=== PATIENT | female | born 1970 | race Two or more races ===

== ENCOUNTER 2023-05-19 19:36 | Inpatient (IN) | payer BC ==
[~2023-05-19] VITALS: Ht 162.6 cm; Wt 107.5 kg
[2023-05-19 20:32] VITALS: BP_SYST 176; PULSE 107; RESP 19; TEMP 97.6; O2SAT 94
[2023-05-19 23:16] LABS: COVID19 ANTIGEN SOFIA FIA NEGATIVE (NEGATIVE)
[2023-05-19 23:58] LABS: INFLUENZA TYPE A negative (NEGATIVE); INFLUENZA TYPE B NEGATIVE (NEGATIVE)
[2023-05-20] VITALS (7 sets, daily range): BP systolic 121–155; PULSE 78–94; RESP 16–18; TEMP 97.3–99.1; O2SAT 93–96
[2023-05-20 00:36] LABS: BASOPHILS # (AUTO) 0.2 K/uL (0.0-0.2); BASOPHILS % (AUTO) 1.5 % (0.0-2.0); EOSINOPHILS # (AUTO) 0.1 K/uL (0.0-0.4); HEMATOCRIT 38.9 % (36-48); HEMOGLOBIN 12.5 g/dL (12.0-16.0); LYMPHOCYTES % (AUTO) 33.4 % (20.5-51.5); MEAN CORPUSCULAR HEMOGLOBIN 29 pg (27-31); MEAN CORPUSCULAR HGB CONC 32 % (32-36); MEAN CORPUSCULAR VOLUME 90 fL (79.0-98.0); MONOCYTES # (AUTO) 0.5 K/uL (0.0-1.0); MONOCYTES % (AUTO) 4.2 % (1.7-9.3); NEUTROPHILS # (AUTO) 7.1 K/uL (1.8-7.7); NEUTROPHILS % (AUTO) 59.9 % (40.0-70.0); PLATELET COUNT (AUTO) 345 K/uL (130-430); RED BLOOD CELL COUNT(AUTO) 4.32 MIL/uL (4.2-6.2); RED CELL DISTRIBUTION WIDTH 15.4 % (9.0-15.0); WHITE BLOOD COUNT (AUTO) 11.9 K/uL (4.8-10.8)
[2023-05-20 00:58] LABS: ANION GAP 11 (5-15); CARBON DIOXIDE 25 mmol/L (23-29); CHLORIDE 105 mmol/L (98-107); CREATININE 0.69 mg/dL (0.55-1.30); GFR AFRICAN AMERICAN 114 mL/min (>90); GLUCOSE 124 mg/dL (74-106); POTASSIUM 3.6 mmol/L (3.5-5.1); SODIUM SERUM 141 mmol/L (136-145); UREA NITROGEN, BLOOD 12 mg/dL (8-21)
[2023-05-20] MEDS ORDERED: NACL 0.9% 1,000 ML IV ONE (01:15)
[2023-05-20 01:19] LABS: ALANINE AMINOTRANSFERASE 72 U/L (12-78); ALBUMIN 2.8 g/dL (3.4-4.8); ASPARTATE AMINOTRANSFERASE 35 U/L (10-37); TOTAL BILIRUBIN 0.5 mg/dL (0.0-1.0); TOTAL PROTEIN, SERUM 6.8 g/dL (6.4-8.3)
[2023-05-20 01:25] LABS: GFR NON AFRICAN-AMERICAN 95 mL/min (>90)
[2023-05-20] MEDS ORDERED: iohexoL 350 mgI/mL, 100 ML INFUS..BTL IV ONE (01:38)
[2023-05-20] MEDS ORDERED: ENOXAPARIN SODIUM 100 MG/ML SYRINGE SUBCUT ONE (01:45)
[2023-05-20] MEDS ORDERED: ASPIRIN 325 MG TABLET PO ONE (01:45)
[2023-05-20] MEDS ORDERED: FUROSEMIDE 40 MG/4 ML VIAL IVP ONE (05:30)
[2023-05-20] MEDS: NACL 0.9% 1,000 ML IV SCH (07:40)
[2023-05-20] MEDS ORDERED: ONDANSETRON HCL 4 MG/2 ML VIAL IVP PRN (08:15)
[2023-05-20] MEDS ORDERED: MUPIROCIN 2% TOPICAL OINTMENT 22 GM NS PRN (08:15)
[2023-05-20] MEDS ORDERED: DOCUSATE SODIUM 100 MG CAPSULE PO PRN (08:15)
[2023-05-20] MEDS ORDERED: POTASSIUM CHLORIDE 20 MEQ TAB.PRT.SR PO PRN (08:15)
[2023-05-20] MEDS ORDERED: MORPHINE 2 MG/ML INJ. SYRINGE IVP PRN ×2 (08:15)
[2023-05-20] MEDS ORDERED: ZOLPIDEM TARTRATE 5 MG TABLET PO PRN (08:15)
[2023-05-20] MEDS ORDERED: ACETAMINOPHEN 325 MG TABLET PO PRN ×2 (08:15→09:45)
[2023-05-20] MEDS ORDERED: NALOXONE HCL 0.4 MG/ML AMP (NARCAN) IVP PRN ×2 (08:15)
[2023-05-20] MEDS ORDERED: MAGNESIUM SULFATE 50 ML IV PRN (08:15)
[2023-05-20] MEDS ORDERED: LORazepam 2 MG/ML VIAL IVP PRN (08:15)
[2023-05-20] MEDS ORDERED: PIPERACILLIN/TAZO 3.375/DEX-IS 50 ML IV SCH (08:15)
[2023-05-20] MEDS ORDERED: FUROSEMIDE 20 MG/2 ML VIAL IVP SCH (09:00)
[2023-05-20] MEDS: ENOXAPARIN SODIUM 40 MG/0.4 ML SYRINGE SUBCUT SCH (09:44)
[2023-05-20] MEDS: METOPROLOL TARTRATE 25 MG TABLET PO SCH ×2 (09:44→21:58)
[2023-05-20 11:36] LABS: THYROID STIMULATING HORMONE 3.48 uIu/mL (0.34-4.82)
[2023-05-20] MEDS: PIPERACILLIN/TAZO 3.375/DEX-IS 50 ML IV SCH ×2 (17:06→23:23)
[2023-05-21 00:02] VITALS: BP_SYST 135; PULSE 71; RESP 18; TEMP 98.2; O2SAT 94
[2023-05-21] MEDS: NACL 0.9% 1,000 ML IV SCH ×2 (05:01→17:16)
[2023-05-21] MEDS: PIPERACILLIN/TAZO 3.375/DEX-IS 50 ML IV SCH ×3 (05:01→17:18)
[2023-05-21 05:21] LABS: METHAMPHETAMINES SCREEN,URINE POSITIVE (NEG <=500)
[2023-05-21 05:22] LABS: BARBITURATE, URINE NEGATIVE (NEG <=200); BENZODIAZEPINE, URINE NEGATIVE (NEG <=150); CANNABINOID, URINE NEGATIVE (NEG <=50); COCAINE, URINE NEGATIVE (NEG <=150); OPIATE, URINE NEGATIVE (NEG <=100); PHENCYCLIDINE SCREEN,URINE NEGATIVE (NEG <=25); UR TRICYCLIC ANTIDEPRESSANTS NEGATIVE (NEG <=300); URINE AMPHETAMINE POSITIVE (NEG <=500); URINE METHADONE NEGATIVE (NEG <=200); URINE OXYCODONE SCREEN NEGATIVE (NEG <=100); URINE PROPOXYPHENE SCREEN NEGATIVE (NEG <=300)
[2023-05-21 05:54] LABS: BASOPHILS # (AUTO) 0.1 K/uL (0.0-0.2); BASOPHILS % (AUTO) 0.6 % (0.0-2.0); EOSINOPHILS # (AUTO) 0.1 K/uL (0.0-0.4); EOSINOPHILS % (AUTO) 1.5 % (0.0-4.0); HEMOGLOBIN 11.8 g/dL (12.0-16.0); LYMPHOCYTES # (AUTO) 2.7 K/uL (1.0-5.5); LYMPHOCYTES % (AUTO) 28.3 % (20.5-51.5); MEAN CORPUSCULAR HEMOGLOBIN 30 pg (27-31); MEAN CORPUSCULAR HGB CONC 33 % (32-36); MEAN CORPUSCULAR VOLUME 90 fL (79.0-98.0); MONOCYTES # (AUTO) 0.5 K/uL (0.0-1.0); MONOCYTES % (AUTO) 5.4 % (1.7-9.3); NEUTROPHILS # (AUTO) 6.2 K/uL (1.8-7.7); NEUTROPHILS % (AUTO) 64.2 % (40.0-70.0); PLATELET COUNT (AUTO) 333 K/uL (130-430); RED BLOOD CELL COUNT(AUTO) 3.99 MIL/uL (4.2-6.2); RED CELL DISTRIBUTION WIDTH 15.5 % (9.0-15.0); WHITE BLOOD COUNT (AUTO) 9.7 K/uL (4.8-10.8)
[2023-05-21 06:05] LABS: CALCIUM 7.8 mg/dL (8.4-11.0); CREATININE 0.78 mg/dL (0.55-1.30); POTASSIUM 3.4 mmol/L (3.5-5.1)
[2023-05-21 08:00] VITALS: BP_SYST 137; PULSE 84; RESP 20; TEMP 97.6; O2SAT 96; O2SAT 98
[2023-05-21] MEDS ORDERED: ASPIRIN 81 MG TABLET(ECOTRIN) PO ONE (09:15)
[2023-05-21] MEDS ORDERED: FUROSEMIDE 20 MG/2 ML VIAL IVP ONE (09:15)
[2023-05-21] MEDS: METOPROLOL TARTRATE 25 MG TABLET PO SCH ×2 (09:20→21:02)
[2023-05-21] MEDS: ENOXAPARIN SODIUM 40 MG/0.4 ML SYRINGE SUBCUT SCH (09:21)
[2023-05-21 12:00] VITALS: BP_SYST 129; PULSE 83; RESP 20; TEMP 97.5; O2SAT 97
[2023-05-21] MEDS: IPRATROPIUM/ALBUTEROL SULFATE 3 ML AMPUL.NEB (DUONEB) INH PRN ×2 (13:31→21:58)
[2023-05-21 16:00] VITALS: BP_SYST 130; PULSE 80; RESP 20; TEMP 97.4; O2SAT 97
[2023-05-21 20:00] VITALS: BP_SYST 131; PULSE 82; RESP 20; TEMP 98.1; O2SAT 99
[2023-05-21 22:04] VITALS: O2SAT 97
[2023-05-22] VITALS (12 sets, daily range): BP systolic 128–145; PULSE 78–95; RESP 18–21; TEMP 97.8–98.8; O2SAT 2–99
[2023-05-22] MEDS: PIPERACILLIN/TAZO 3.375/DEX-IS 50 ML IV SCH ×5 (00:55→18:46)
[2023-05-22] MEDS: NACL 0.9% 1,000 ML IV SCH (00:56)
[2023-05-22 06:06] LABS: BASOPHILS % (AUTO) 0.4 % (0.0-2.0); EOSINOPHILS # (AUTO) 0.1 K/uL (0.0-0.4); EOSINOPHILS % (AUTO) 1.3 % (0.0-4.0); HEMATOCRIT 34.9 % (36-48); HEMOGLOBIN 11.4 g/dL (12.0-16.0); LYMPHOCYTES # (AUTO) 2.3 K/uL (1.0-5.5); LYMPHOCYTES % (AUTO) 27.7 % (20.5-51.5); MEAN CORPUSCULAR HEMOGLOBIN 30 pg (27-31); MEAN CORPUSCULAR HGB CONC 33 % (32-36); MEAN CORPUSCULAR VOLUME 90 fL (79.0-98.0); MONOCYTES # (AUTO) 0.5 K/uL (0.0-1.0); MONOCYTES % (AUTO) 5.8 % (1.7-9.3); NEUTROPHILS # (AUTO) 5.4 K/uL (1.8-7.7); NEUTROPHILS % (AUTO) 64.8 % (40.0-70.0); PLATELET COUNT (AUTO) 338 K/uL (130-430); RED BLOOD CELL COUNT(AUTO) 3.88 MIL/uL (4.2-6.2); RED CELL DISTRIBUTION WIDTH 15.1 % (9.0-15.0); WHITE BLOOD COUNT (AUTO) 8.4 K/uL (4.8-10.8)
[2023-05-22 06:24] LABS: CALCIUM 7.9 mg/dL (8.4-11.0); CREATININE 0.64 mg/dL (0.55-1.30); POTASSIUM 3.3 mmol/L (3.5-5.1)
[2023-05-22] MEDS ORDERED: AMOX-423 PO (08:34)
[2023-05-22] MEDS ORDERED: ASPI-1155 PO (08:34)
[2023-05-22] MEDS ORDERED: FURO-150 PO ×2 (08:34)
[2023-05-22] MEDS: ENOXAPARIN SODIUM 40 MG/0.4 ML SYRINGE SUBCUT SCH (08:58)
[2023-05-22] MEDS: METOPROLOL TARTRATE 25 MG TABLET PO SCH (08:59)
[2023-05-22] MEDS ORDERED: FUROSEMIDE 20 MG/2 ML VIAL IVP SCH (09:00)
[2023-05-22] MEDS: ASPIRIN 81 MG TABLET(ECOTRIN) PO SCH (09:06)
[2023-05-22] MEDS: IPRATROPIUM/ALBUTEROL SULFATE 3 ML AMPUL.NEB (DUONEB) INH PRN (11:04)
[2023-05-22] MEDS ORDERED: FUROSEMIDE 40 MG/4 ML VIAL IVP ONE (15:30)
[2023-05-22] MEDS ORDERED: POTASSIUM CHLORIDE 20 MEQ TAB.PRT.SR PO ONE (15:30)
[2023-05-22] MEDS: CARVEDILOL 6.25 MG TABLET (COREG) PO SCH (21:22)
[2023-05-23] MEDS: PIPERACILLIN/TAZO 3.375/DEX-IS 50 ML IV SCH ×3 (00:07→11:06)
[2023-05-23 00:20] VITALS: BP_SYST 118; PULSE 69; RESP 18; TEMP 97.1; O2SAT 94
[2023-05-23 05:01] LABS: BASOPHILS % (AUTO) 0.5 % (0.0-2.0); EOSINOPHILS # (AUTO) 0.2 K/uL (0.0-0.4); EOSINOPHILS % (AUTO) 2.4 % (0.0-4.0); HEMATOCRIT 36.8 % (36-48); HEMOGLOBIN 11.9 g/dL (12.0-16.0); LYMPHOCYTES # (AUTO) 2.4 K/uL (1.0-5.5); LYMPHOCYTES % (AUTO) 28.9 % (20.5-51.5); MEAN CORPUSCULAR HEMOGLOBIN 29 pg (27-31); MEAN CORPUSCULAR HGB CONC 32 % (32-36); MEAN CORPUSCULAR VOLUME 90 fL (79.0-98.0); MONOCYTES # (AUTO) 0.4 K/uL (0.0-1.0); MONOCYTES % (AUTO) 4.3 % (1.7-9.3); NEUTROPHILS # (AUTO) 5.3 K/uL (1.8-7.7); NEUTROPHILS % (AUTO) 63.9 % (40.0-70.0); PLATELET COUNT (AUTO) 334 K/uL (130-430); RED BLOOD CELL COUNT(AUTO) 4.09 MIL/uL (4.2-6.2); RED CELL DISTRIBUTION WIDTH 15.3 % (9.0-15.0); WHITE BLOOD COUNT (AUTO) 8.4 K/uL (4.8-10.8)
[2023-05-23 05:17] LABS: CALCIUM 8.1 mg/dL (8.4-11.0); CREATININE 0.71 mg/dL (0.55-1.30); POTASSIUM 3.6 mmol/L (3.5-5.1)
[2023-05-23 07:40] VITALS: O2SAT 94
[2023-05-23 08:00] VITALS: BP_SYST 134; PULSE 78; RESP 20; TEMP 97.9; O2SAT 94
[2023-05-23] MEDS: CARVEDILOL 6.25 MG TABLET (COREG) PO SCH (08:37)
[2023-05-23] MEDS: ASPIRIN 81 MG TABLET(ECOTRIN) PO SCH (08:37)
[2023-05-23] MEDS: ENOXAPARIN SODIUM 40 MG/0.4 ML SYRINGE SUBCUT SCH (08:38)
[2023-05-23] MEDS ORDERED: lisinopriL 5 MG TABLET PO SCH (09:00)
[2023-05-23] MEDS ORDERED: FUROSEMIDE 40 MG/4 ML VIAL IVP SCH (09:00)
[2023-05-23] MEDS ORDERED: COR6.25 PO (10:06)
[2023-05-23] MEDS ORDERED: FURO-149 PO (10:06)
[2023-05-23] MEDS ORDERED: POTA-178 PO (10:06)
[2023-05-23 11:13] VITALS: BP_SYST 129; PULSE 85; RESP 17; TEMP 97.7; O2SAT 96
[2023-05-23 13:57] VITALS: BP_SYST 125; PULSE 85; RESP 18; TEMP 97.7; O2SAT 93
[2023-05-23 16:30] VITALS: BP_SYST 129; PULSE 75; RESP 18; TEMP 97.9; O2SAT 99
== END 2023-05-23 16:30 | disposition home or self-care (01) | DRG 280 ==
LOC: SED 19:36 → STU 05-20 05:23
PROVIDERS: ADMIT General Practice; ATTEND General Practice
DX: I11.0 Hypertensive heart disease with heart failure (principal); I21.A1 Myocardial infarction type 2; I50.43 Acute on chronic combined systolic (congestive) and diastolic (congestive) heart failure; J18.9 Pneumonia, unspecified organism; J96.01 Acute respiratory failure with hypoxia; E44.1 Mild protein-calorie malnutrition; Z68.41 Body mass index [BMI] 40.0-44.9, adult; E66.9 Obesity, unspecified; Z20.822 Contact with and (suspected) exposure to COVID-19; F15.10 Other stimulant abuse, uncomplicated; Z87.891 Personal history of nicotine dependence
CPT/HCPCS: 36415; 71045; 71275; 76376; 76604; 80048; 80053; 80061; 80307; 83037; 83735; 83880; 84443; 84484; 85025; 85379; 85610-TC; 85730-TC; 93005; 93306; 94640; 94760; 96361; 96374; 99285; G0378; J1650; J1940; J2543; J7030; Q9967